=== PATIENT | male | born 1990 | race Caucasian/White ===

== ENCOUNTER 2021-06-06 19:18 | Inpatient (IN) | payer OTHER ==
[2021-06-06] MEDS ORDERED: MAG HYDROX/AL HYDROX/SIMETH 30 ML UNIT-DOSE CUP PO PRN (20:33)
[2021-06-06] MEDS ORDERED: MAGNESIUM HYDROX 2400MG/30ML ORAL SUSPENSION 30 ML CUP PO PRN (20:33)
[2021-06-06] MEDS ORDERED: NALOXONE (NARCAN) HCL 4 MG/0.1 ML SPRAY NS PRN (20:33)
[2021-06-06] MEDS ORDERED: methaDONE HCL 10 MG TABLET (FOR DETOX USE ONLY) PO ONE (20:33)
[2021-06-06] MEDS ORDERED: MENTHOL/PHENOL 1 EACH UD MM PRN (20:33)
[2021-06-06] MEDS ORDERED: IBUPROFEN 400 MG TABLET (FP) PO PRN (20:33)
[2021-06-06] MEDS ORDERED: MAGNESIUM CITRATE 300 ML BOTTLE PO PRN (20:33)
[2021-06-06] MEDS ORDERED: cloNIDine HCL 0.1 MG TABLET PO PRN (20:33)
[2021-06-06] MEDS ORDERED: ACETAMINOPHEN 325 MG TABLET (FP) PO PRN ×2 (20:33)
[2021-06-06] MEDS ORDERED: DICYCLOMINE HCL 10 MG CAPSULE PO PRN (20:33)
[2021-06-06] MEDS ORDERED: NALOXONE HCL 0.4 MG/ML VIAL IM PRN (20:33)
[2021-06-06] MEDS ORDERED: P-EPHED 60MG/TRIPROLIDI 2.5MG TABLET PO PRN (20:33)
[2021-06-06] MEDS ORDERED: guaiFENesin 200 MG/10 ML 10 ML UNIT-DOSE CUPS PO PRN (20:33)
[2021-06-06] MEDS ORDERED: BISMUTH SUBSALICYLATE 524 MG/30 ML PO PRN (20:33)
[2021-06-06 20:34] VITALS: BMI 23.8
[2021-06-06] MEDS: diazePAM 5 MG TABLET PO PRN (22:07)
[2021-06-06] MEDS: THIAMINE HCL 100 MG TABLET (FP) PO SCH (22:09)
[2021-06-06] MEDS: MELATONIN 5 MG TABLETS PO SCH (22:11)
[2021-06-07] MEDS: METHOCARBAMOL 500 MG TABLET PO PRN ×2 (03:01→15:33)
[2021-06-07] MEDS: diazePAM 5 MG TABLET PO PRN ×3 (08:52→22:24)
[2021-06-07] MEDS ORDERED: methaDONE HCL 10 MG TABLET (FOR DETOX USE ONLY) ONE (09:07)
[2021-06-07] MEDS: PRENATAL VITAMINS W/ FOLIC ACID TABLET (FP) PO SCH (10:44)
[2021-06-07] MEDS: NICOTINE 14 MG/24 HOURS TOPICAL PATCH TD SCH (10:45)
[2021-06-07 11:52] LABS: CALCIUM 8.7 mg/dL (8.5-10.1)
[2021-06-07 11:53] LABS: ALBUMIN 3.2 g/dl (3.4-5.0); BLOOD UREA NITROGEN 10.9 mg/dL (7-18)
[2021-06-07 11:56] LABS: CREATININE 0.9 mg/dL (0.55-1.3); HEMATOCRIT 41.8 % (35.4-49); HEMOGLOBIN 14.1 GM/dL (11.7-16.9); MCH 32.6 pg (25.7-33.7); MCHC 33.8 g/dl (32.0-35.9); MEAN CELL VOLUME 96.4 fl (80-96); MEAN PLT VOLUME 9.2 fl (7.5-11.1); PLATELET COUNT 207 10^3/uL (134-434); RBC 4.34 M/mm3 (4.00-5.60)
[2021-06-07 11:57] LABS: BILIRUBIN,TOTAL 0.2 mg/dL (0.2-1)
[2021-06-07 11:58] LABS: TOT PROT 6.3 g/dl (6.4-8.2)
[2021-06-07] MEDS: THIAMINE HCL 100 MG TABLET (FP) PO SCH (22:23)
[2021-06-07] MEDS: MELATONIN 5 MG TABLETS PO SCH (22:23)
[2021-06-08] MEDS: diazePAM 5 MG TABLET PO PRN ×2 (08:45→16:35)
[2021-06-08] MEDS ORDERED: methaDONE HCL 10 MG TABLET (FOR DETOX USE ONLY) PO ONE (10:00)
[2021-06-08] MEDS: METHOCARBAMOL 500 MG TABLET PO PRN (10:31)
[2021-06-08] MEDS: PRENATAL VITAMINS W/ FOLIC ACID TABLET (FP) PO SCH (10:31)
[2021-06-08] MEDS: NICOTINE 14 MG/24 HOURS TOPICAL PATCH TD SCH (10:32)
[2021-06-08] MEDS: NICOTINE 10 MG CARTRIDGE (INHALER) IH PRN (15:18)
[2021-06-08] MEDS: MELATONIN 5 MG TABLETS PO SCH (22:08)
[2021-06-08] MEDS: THIAMINE HCL 100 MG TABLET (FP) PO SCH (22:08)
[2021-06-09] MEDS: diazePAM 5 MG TABLET PO PRN ×4 (05:51→19:18)
[2021-06-09] MEDS ORDERED: methaDONE HCL 10 MG TABLET (FOR DETOX USE ONLY) ONE (09:49)
[2021-06-09] MEDS: PRENATAL VITAMINS W/ FOLIC ACID TABLET (FP) PO SCH (10:31)
[2021-06-09] MEDS: NICOTINE 14 MG/24 HOURS TOPICAL PATCH TD SCH (10:33)
[2021-06-09] MEDS: MELATONIN 5 MG TABLETS PO SCH (22:00)
[2021-06-09] MEDS: THIAMINE HCL 100 MG TABLET (FP) PO SCH (22:00)
[2021-06-09] MEDS: METHOCARBAMOL 500 MG TABLET PO PRN (22:02)
[2021-06-10] MEDS ORDERED: methaDONE HCL 10 MG TABLET (FOR DETOX USE ONLY) PO ONE (10:00)
[2021-06-10] MEDS: NICOTINE 14 MG/24 HOURS TOPICAL PATCH TD SCH (10:17)
[2021-06-10] MEDS: PRENATAL VITAMINS W/ FOLIC ACID TABLET (FP) PO SCH (10:17)
[2021-06-10] MEDS: METHOCARBAMOL 500 MG TABLET PO PRN ×2 (10:19→22:36)
[2021-06-10 21:25] VITALS: TEMP 98.9
[2021-06-10] MEDS: THIAMINE HCL 100 MG TABLET (FP) PO SCH (22:33)
[2021-06-10] MEDS: MELATONIN 5 MG TABLETS PO SCH (22:33)
[2021-06-10] MEDS: NICOTINE 10 MG CARTRIDGE (INHALER) IH PRN (22:34)
[2021-06-11] MEDS: METHOCARBAMOL 500 MG TABLET PO PRN (05:31)
[2021-06-11 07:22] VITALS: BP 107/55; PULSE 60
== END 2021-06-11 10:44 | disposition home or self-care (01) | DRG 773 ==
LOC: YASAS 19:18 → Y6N 21:00
PROVIDERS: ADMIT Allergy & Immunology; ATTEND Allergy & Immunology
PROC: HZ2ZZZZ Detoxification Services for Substance Abuse Treatment (ICD-10-PCS; principal; 2021-06-06)
DX: F11.23 Opioid dependence with withdrawal (principal); F14.20 Cocaine dependence, uncomplicated; F12.20 Cannabis dependence, uncomplicated; F17.210 Nicotine dependence, cigarettes, uncomplicated; F39 Unspecified mood [affective] disorder; F19.24 Other psychoactive substance dependence with psychoactive substance-induced mood disorder; Z86.19 Personal history of other infectious and parasitic diseases; Z56.0 Unemployment, unspecified; Z59.01 Sheltered homelessness
CPT/HCPCS: 36415; 80053; 85027; 86780; 93005; 93010; C9803; U0003; U0005

== ENCOUNTER 2022-06-02 17:34 | Inpatient (IN) | payer BC, OTHER ==
[2022-06-02 18:24] VITALS: BMI 25.8
[2022-06-02] MEDS ORDERED: ONDANSETRON *ODT* 4 MG TABLET SL PRN (19:52)
[2022-06-02] MEDS ORDERED: POLYETHYLENE GLYCOL (HEALTHYLAX) 3350 17 GM PACKET PO PRN (19:52)
[2022-06-02] MEDS ORDERED: BISMUTH SUBSALICYLATE 524 MG/30 ML PO PRN (19:52)
[2022-06-02] MEDS ORDERED: IBUPROFEN 400 MG TABLET (FP) PO PRN (19:52)
[2022-06-02] MEDS ORDERED: MAG HYDROX/AL HYDROX/SIMETH 30 ML UNIT-DOSE CUP PO PRN (19:52)
[2022-06-02] MEDS ORDERED: BENZOCAINE/MENTHOL (CHLORASEPTIC ) LOZENGE MM PRN (19:52)
[2022-06-02] MEDS ORDERED: IBUPROFEN 600 MG TABLET (FP) PO PRN (19:52)
[2022-06-02] MEDS ORDERED: ACETAMINOPHEN 325 MG TABLET (FP) PO PRN ×2 (19:52)
[2022-06-02] MEDS ORDERED: MAGNESIUM HYDROX 2400MG/30ML ORAL SUSPENSION 30 ML CUP PO PRN (19:52)
[2022-06-02] MEDS ORDERED: LOPERAMIDE HCL 2 MG CAPSULE PO PRN (19:52)
[2022-06-02] MEDS ORDERED: NICOTINE 10 MG CARTRIDGE (INHALER) IH PRN (19:52)
[2022-06-02] MEDS ORDERED: NALOXONE HCL (KLOXXADO) 8 MG SPRAY NS PRN (19:52)
[2022-06-02] MEDS ORDERED: DICYCLOMINE HCL 10 MG CAPSULE PO PRN (19:52)
[2022-06-02] MEDS: PRENATAL VITAMINS W/ FOLIC ACID TABLET (FP) PO SCH (21:08)
[2022-06-02] MEDS: THIAMINE HCL 100 MG TABLET (FP) PO SCH (22:16)
[2022-06-02] MEDS: MELATONIN 5 MG TABLETS PO SCH (22:16)
[2022-06-03] MEDS: PRENATAL VITAMINS W/ FOLIC ACID TABLET (FP) PO SCH (10:16)
[2022-06-03 10:25] LABS: HEMATOCRIT 42.5 % (35.4-49); HEMOGLOBIN 13.9 GM/dL (11.7-16.9); MCH 30.3 pg (25.7-33.7); MCHC 32.7 g/dl (32.0-35.9); MEAN CELL VOLUME 92.5 fl (80-96); MEAN PLT VOLUME 8.5 fl (7.5-11.1); PLATELET COUNT 276 10^3/uL (134-434); RDW 14.4 % (11.9-15.9)
[2022-06-03 10:35] LABS: CALCIUM 8.6 mg/dL (8.5-10.1)
[2022-06-03 10:36] LABS: BLOOD UREA NITROGEN 13.5 mg/dL (7-18)
[2022-06-03 10:39] LABS: ALBUMIN 2.9 g/dl (3.4-5.0)
[2022-06-03 10:40] LABS: BILIRUBIN,TOTAL 0.3 mg/dL (0.2-1); TOT PROT 6.4 g/dl (6.4-8.2)
[2022-06-03 10:42] LABS: CREATININE 0.8 mg/dL (0.55-1.3)
[2022-06-03] MEDS ORDERED: cloNIDine HCL 0.1 MG TABLET PO PRN (10:48)
[2022-06-03] MEDS: diazePAM 5 MG TABLET PO PRN (11:19)
[2022-06-03] MEDS ORDERED: methaDONE HCL 10 MG TABLET (FOR DETOX USE ONLY) PO ONE (11:30)
[2022-06-03] MEDS: THIAMINE HCL 100 MG TABLET (FP) PO SCH (23:14)
[2022-06-03] MEDS: MELATONIN 5 MG TABLETS PO SCH (23:14)
[2022-06-04] MEDS: PRENATAL VITAMINS W/ FOLIC ACID TABLET (FP) PO SCH (10:18)
[2022-06-04] MEDS: diazePAM 5 MG TABLET PO PRN (22:31)
[2022-06-04] MEDS: THIAMINE HCL 100 MG TABLET (FP) PO SCH (22:31)
[2022-06-04] MEDS: MELATONIN 5 MG TABLETS PO SCH (22:31)
[2022-06-05] MEDS ORDERED: methaDONE HCL 10 MG TABLET (FOR DETOX USE ONLY) PO ONE (10:00)
[2022-06-05] MEDS: PRENATAL VITAMINS W/ FOLIC ACID TABLET (FP) PO SCH (10:29)
[2022-06-05] MEDS: diazePAM 5 MG TABLET PO PRN ×2 (10:30→22:29)
[2022-06-05] MEDS: MELATONIN 5 MG TABLETS PO SCH (22:29)
[2022-06-05] MEDS: THIAMINE HCL 100 MG TABLET (FP) PO SCH (22:29)
[2022-06-06] MEDS: METHOCARBAMOL 500 MG TABLET PO PRN (10:22)
[2022-06-06] MEDS: PRENATAL VITAMINS W/ FOLIC ACID TABLET (FP) PO SCH (10:22)
[2022-06-06] MEDS: hydrOXYzine PAMOATE 25 MG CAPSULE (FP) PO PRN ×2 (10:22→22:02)
[2022-06-06] MEDS: THIAMINE HCL 100 MG TABLET (FP) PO SCH (22:02)
[2022-06-06] MEDS: MELATONIN 5 MG TABLETS PO SCH (22:24)
[2022-06-07] MEDS ORDERED: methaDONE HCL 10 MG TABLET (FOR DETOX USE ONLY) PO ONE (10:00)
[2022-06-07] MEDS: PRENATAL VITAMINS W/ FOLIC ACID TABLET (FP) PO SCH (10:39)
[2022-06-07] MEDS: METHOCARBAMOL 500 MG TABLET PO PRN ×2 (10:39→21:20)
[2022-06-07] MEDS: MELATONIN 5 MG TABLETS PO SCH (21:20)
[2022-06-07] MEDS: THIAMINE HCL 100 MG TABLET (FP) PO SCH (21:20)
[2022-06-08 09:06] VITALS: BP 107/56; PULSE 74; RESP 18; TEMP 96.8
[2022-06-08] MEDS: PRENATAL VITAMINS W/ FOLIC ACID TABLET (FP) PO SCH (09:59)
== END 2022-06-08 09:55 | disposition other institution (70) | DRG 773 ==
LOC: YASAS 17:34 → Y3N 20:40
PROVIDERS: ADMIT Allergy & Immunology; ATTEND Surgery
PROC: HZ2ZZZZ Detoxification Services for Substance Abuse Treatment (ICD-10-PCS; principal; 2022-06-02)
DX: F11.23 Opioid dependence with withdrawal (principal); F13.20 Sedative, hypnotic or anxiolytic dependence, uncomplicated; F14.20 Cocaine dependence, uncomplicated; F15.20 Other stimulant dependence, uncomplicated; F12.20 Cannabis dependence, uncomplicated; G40.509 Epileptic seizures related to external causes, not intractable, without status epilepticus; F20.9 Schizophrenia, unspecified; F31.9 Bipolar disorder, unspecified; F19.24 Other psychoactive substance dependence with psychoactive substance-induced mood disorder; F39 Unspecified mood [affective] disorder; F41.9 Anxiety disorder, unspecified; E88.09 Other disorders of plasma-protein metabolism, not elsewhere classified; Z68.25 Body mass index [BMI] 25.0-25.9, adult; Z86.19 Personal history of other infectious and parasitic diseases; Z56.0 Unemployment, unspecified; Z59.00 Homelessness unspecified
CPT/HCPCS: 36415; 80053; 85027; 86780; 87811; C9803-CS; U0003; U0005